=== PATIENT | female | born 1945 ===

== ENCOUNTER 2019-05-06 07:00 | Day surgery (SDC) | payer OTHER ==
[~2019-05-06 07:00] MED LIST: [UNRECOGNIZED DRUG - OTHER] PO
== END 2019-05-06 13:20 | disposition home or self-care (01) ==
LOC: AMB-ENDOS 07:00
DX: D12.0 Benign neoplasm of cecum (principal)

== ENCOUNTER 2019-05-13 14:00 | Inpatient (IN) | payer OTHER ==
[~2019-05-13] VITALS: Ht 167.6 cm; Wt 61.7 kg
[2019-05-13] MEDS ORDERED: ATACAN PO (15:06)
[2019-05-13] MEDS ORDERED: ATROVENT IN (15:07)
[2019-05-13] MEDS ORDERED: SPIRIVA (15:07)
[2019-05-13] MEDS ORDERED: ALBUTEROL IN (15:08)
[2019-05-20] MEDS ORDERED: ATROVENT HFA12.9 GM (08:08)
[2019-05-20] MEDS ORDERED: ALBUTEROL0.63 MG/3 (08:08)
[2019-05-20] MEDS ORDERED: SPIRIVA RESPIMAT4 G1 IH (08:08)
[2019-05-20] MEDS ORDERED: ATACAND4 MG PO (08:09)
[2019-05-22] MEDS ORDERED: PERCOCET 5-3251 EACH PO (09:17)
== END 2019-05-22 10:34 | disposition home or self-care (01) | DRG 331 ==
LOC: SURH 14:00 → SURG 05-17 11:18 → O/R 05-17 11:18 → SURH 05-17 14:00 → SURG 05-17 17:17
PROVIDERS: ADMIT Surgery
PROC: 07TB4ZZ Resection of Mesenteric Lymphatic, Percutaneous Endoscopic Approach (ICD-10-PCS; 2019-05-17)
PROC: 0DTK4ZZ Resection of Ascending Colon, Percutaneous Endoscopic Approach (ICD-10-PCS; principal; 2019-05-17 16:15)
DX: C18.2 Malignant neoplasm of ascending colon (principal); R59.0 Localized enlarged lymph nodes; I10 Essential (primary) hypertension; J44.9 Chronic obstructive pulmonary disease, unspecified

== ENCOUNTER 2019-06-07 20:43 | Emergency (ER) | payer OTHER ==
[~2019-06-07] VITALS: Ht 167.6 cm; Wt 61.7 kg
[~2019-06-07 20:43] MED LIST changes: +ALBUTEROL IN; +ALBUTEROL0.63 MG/3; +ATACAN PO; +ATACAND4 MG PO; +ATROVENT HFA12.9 GM; +ATROVENT IN; +PERCOCET 5-3251 EACH PO; +SPIRIVA; +SPIRIVA RESPIMAT4 G1 IH
== END 2019-06-07 22:32 | disposition home or self-care (01) ==
LOC: ER 20:43
DX: R14.3 Flatulence (principal); R10.84 Generalized abdominal pain

== ENCOUNTER 2020-09-09 14:52 | Emergency (ER) | payer OTHER ==
[~2020-09-09] VITALS: Ht 167.6 cm; Wt 72.6 kg
[2020-09-09] MEDS ORDERED: TOPROL XL25 M1 (15:33)
[2020-09-09] MEDS ORDERED: SIMETHICONE80 MG (15:34)
[2020-09-09] MEDS ORDERED: CHILDREN'S ASPI81 MG (15:34)
[2020-09-09] MEDS ORDERED: PROTONIX40 M1 (15:34)
[2020-09-09] MEDS ORDERED: ATORVASTATIN CA10 MG (15:35)
== END 2020-09-09 22:31 | disposition home or self-care (01) ==
LOC: ER 14:52
DX: K42.0 Umbilical hernia with obstruction, without gangrene (principal)

== ENCOUNTER 2020-09-14 10:52 | Day surgery (SDC) | payer OTHER ==
[~2020-09-14 10:52] MED LIST changes: +ATORVASTATIN CA10 MG; +CHILDREN'S ASPI81 MG; +PROTONIX40 M1; +SIMETHICONE80 MG; +TOPROL XL25 M1
== END 2020-09-14 15:10 | disposition home or self-care (01) ==
LOC: AMB-ENDOS 10:52
PROVIDERS: ATTEND Surgery
DX: K63.5 Polyp of colon (principal)

== ENCOUNTER 2021-02-01 10:30 | Inpatient (IN) | payer OTHER ==
[~2021-02-01] VITALS: Ht 167.6 cm; Wt 73.5 kg
[2021-02-01] MEDS ORDERED: NIFEDIPINE20 MG PO (13:19)
[2021-02-05] MEDS ORDERED: CANDESARTAN CIL16 MG (10:33)
[2021-02-09] MEDS ORDERED: PERCOCET 5-3251 EACH PO (10:58)
== END 2021-02-09 14:38 | disposition home or self-care (01) | DRG 354 ==
LOC: O/R 02-05 09:06 → SURH 02-05 09:06 → SURG 02-05 10:30 → SURH 02-05 13:10 → SURG 02-05 15:45 → SURH 02-09 14:38
PROVIDERS: ADMIT Surgery; ATTEND Surgery
PROC: 0WUF4JZ Supplement Abdominal Wall with Synthetic Substitute, Percutaneous Endoscopic Approach (ICD-10-PCS; principal; 2021-02-05 15:45)
DX: K43.2 Incisional hernia without obstruction or gangrene (principal); K91.89 Other postprocedural complications and disorders of digestive system; K56.7 Ileus, unspecified; K66.0 Peritoneal adhesions (postprocedural) (postinfection); I10 Essential (primary) hypertension; E78.5 Hyperlipidemia, unspecified; D12.2 Benign neoplasm of ascending colon